=== PATIENT | female | born 1940 | race Caucasian/White ===

== ENCOUNTER 2022-01-09 12:35 | Inpatient (IN) | payer MEDICARE, OTHER ==
[~2022-01-09] VITALS: Ht 154.9 cm; Wt 72.6 kg
[2022-01-09] MEDS ORDERED: ALBU18HF2 IH (13:05)
[2022-01-09] MEDS ORDERED: MELO-105 PO (13:05)
[2022-01-09] MEDS ORDERED: LIDO700A30 TP (13:05)
[2022-01-09] MEDS ORDERED: TACR30OI4 TP (13:05)
[2022-01-09] MEDS ORDERED: ATEN100T PO (13:05)
[2022-01-09] MEDS ORDERED: FAMC500T3 PO (13:05)
[2022-01-09] MEDS ORDERED: HYDR-4133 PO (13:05)
[2022-01-09] MEDS ORDERED: CRES10 (13:07)
[2022-01-09] MEDS ORDERED: LANS30CA55 PO (13:07)
[2022-01-09] MEDS ORDERED: LOSA1TAB37 PO (13:07)
[2022-01-09] MEDS ORDERED: ONDANSETRON HCL 4MG/2ML INJ IV STA (13:28)
[2022-01-09] MEDS ORDERED: MORPHINE SULFATE 4 MG/ML CPJ (NOT FOR IM USE) IV STA (13:28)
[2022-01-09] MEDS ORDERED: SODIUM CHLORIDE 0.9% 1,000 ML IV ONE (13:30)
[2022-01-09] MEDS ORDERED: ACYCLOVIR INJ 750 MG in DEXT 5% WATER 125 ML IV SCH (13:30)
[2022-01-09] MEDS ORDERED: ACYCLOVIR INJ 500 MG in DEXT 5% WATER 100 ML IV SCH (13:38)
[2022-01-09 14:11] LABS: BASOPHILS % 0.2 % (0.0-2.0); EOSINOPHILS % 0.1 % (0.0-5.0); HEMATOCRIT. 33.9 % (36.0-48.0); HEMOGLOBIN. 11.9 g/dL (12.0-16.0); LYMPHOCYTES % 16.4 % (20.0-50.0); MEAN CORPUSCULAR HEMOGLOBIN 25.8 pg (28.0-32.0); MEAN CORPUSCULAR VOLUME 73.6 fL (81.0-99.0); MEAN PLATELET VOLUME 7.4 fl (7.4-10.4); MONOCYTES % 12.8 % (2.0-8.0); NEUTROPHILS % 70.5 % (40.0-76.0); PLATELET 145 x1000/uL (130-400); RED CELL DISTRIBUTION WIDTH 13.4 % (11.6-14.6)
[2022-01-09 14:22] LABS: CHLORIDE 71 mEq/L (98-107)
[2022-01-09] MEDS ORDERED: POTASSIUM CHLORIDE INJ 40 MEQ in DEXT 5% WATER 250 ML IV ONE (15:00)
[2022-01-09] MEDS: KCL 20MEQ/100ML PREMIX 100 ML IV SCH ×2 (16:15→17:00)
[2022-01-09 18:23] LABS: CHLORIDE 72 mEq/L (98-107)
[2022-01-09] MEDS ORDERED: ALBUTEROL (0.083%) 2.5MG/3ML NEB HHN ONE (19:00)
[2022-01-09 19:30] LABS: CLARITY URINE CLEAR (CLEAR); COLOR URINE YELLOW (YELLOW); KETONES URINE NEGATIVE (NEGATIVE); LEUKOCYTE ESTERASE URINE NEGATIVE (NEGATIVE); NITRITE URINE NEGATIVE (NEGATIVE); OCCULT BLOOD URINE TRACE (NEGATIVE); PROTEIN URINE 1+ (NEGATIVE); SPECIFIC GRAVITY URINE 1.006 (1.005-1.030); UROBILINOGEN URINE 0.2 E.U./dL (0.2-1.0)
[2022-01-09] MEDS ORDERED: ONDANSETRON HCL 4MG/2ML INJ IV PRN (19:30)
[2022-01-09] MEDS ORDERED: IPRATROPIUM/ALBUTEROL 0.5-3(2.5)MG/3ML NEB HHN PRN (19:30)
[2022-01-09] MEDS ORDERED: LORAZEPAM 0.5MG TABLET PO PRN (19:30)
[2022-01-09] MEDS ORDERED: DOCUSATE SODIUM 100MG CAPSULE PO PRN (19:30)
[2022-01-09] MEDS ORDERED: ACETAMINOPHEN 325MG TABLET PO PRN ×2 (19:30)
[2022-01-09 19:35] LABS: CHLORIDE URINE RANDOM 58 mEq/L; SODIUM URINE RANDOM 59 mEq/L
[2022-01-09] MEDS ORDERED: NALOXONE HCL 0.4MG/ML VIAL IV PRN (19:45)
[2022-01-10] VITALS (33 sets, daily range): BP systolic 72–174; BP diastolic 28–98
[2022-01-10 01:14] LABS: CHLORIDE 76 mEq/L (98-107)
[2022-01-10] MEDS: ACYCLOVIR INJ 500 MG in DEXT 5% WATER 100 ML IV SCH ×4 (02:50→22:54)
[2022-01-10] MEDS ORDERED: DESMOPRESSIN ACETATE 4MCG/ML AMP IV NR (03:30)
[2022-01-10] MEDS ORDERED: DEXT 5% WATER 250 ML IV NR ×2 (03:30)
[2022-01-10 05:26] LABS: BASOPHILS % 0.5 % (0.0-2.0); EOSINOPHILS % 0.1 % (0.0-5.0); HEMATOCRIT. 34.5 % (36.0-48.0); LYMPHOCYTES % 21.7 % (20.0-50.0); MEAN CORPUSCULAR HEMOGLOBIN 25.6 pg (28.0-32.0); MEAN CORPUSCULAR VOLUME 73.8 fL (81.0-99.0); MEAN PLATELET VOLUME 7.1 fl (7.4-10.4); MONOCYTES % 8.6 % (2.0-8.0); NEUTROPHILS % 69.1 % (40.0-76.0); PLATELET 161 x1000/uL (130-400); RED BLOOD CELL COUNT 4.68 mill/uL (4.2-5.4); RED CELL DISTRIBUTION WIDTH 13.4 % (11.6-14.6)
[2022-01-10 05:49] LABS: CHLORIDE 78 mEq/L (98-107)
[2022-01-10] MEDS ORDERED: POTASSIUM CHLORIDE INJ 40 MEQ in DEXT 5% WATER 250 ML IV ONE (06:45)
[2022-01-10] MEDS: KCL 20MEQ/100ML PREMIX 100 ML IV SCH ×3 (07:56→12:35)
[2022-01-10 09:23] LABS: PHOSPHORUS 2.6 mg/dL (2.5-4.9)
[2022-01-10] MEDS: HYDROCODONE/ACETAMINOPHEN 5/325MG TABLET PO PRN ×2 (10:37→23:03)
[2022-01-10] MEDS ORDERED: SODIUM CHLORIDE 3% 250 ML IV ONE (12:00)
[2022-01-10] MEDS ORDERED: MAGNESIUM 2 G PREMIX 50 ML IV NR (12:00)
[2022-01-10] MEDS ORDERED: SODIUM CHLORIDE IV ONE (13:00)
[2022-01-10] MEDS ORDERED: WATER FOR INJECTION STERILE IV ONE (13:00)
[2022-01-10 13:27] LABS: CHLORIDE 76 mEq/L (98-107)
[2022-01-10] MEDS: SODIUM CHLORIDE 0.9% 1,000 ML IV SCH (17:39)
[2022-01-10] MEDS ORDERED: POTASSIUM CHLORIDE INJ 40 MEQ in DEXT 5% WATER 500 ML IV NR (18:00)
[2022-01-10] MEDS ORDERED: VANCOMYCIN 1500MG in DEXTROSE 5% WATER 250ML IV NR (18:30)
[2022-01-10 18:34] LABS: CHLORIDE 82 mEq/L (98-107)
[2022-01-11] VITALS (15 sets, daily range): BP systolic 116–176; BP diastolic 37–127
[2022-01-11] MEDS: CLONIDINE 0.1MG TABLET PO PRN (02:22)
[2022-01-11 02:24] LABS: CHLORIDE 85 mEq/L (98-107)
[2022-01-11] MEDS ORDERED: PROPOFOL 10MG/ML 100ML 100 ML IV PRN (03:00)
[2022-01-11] MEDS: ACYCLOVIR INJ 500 MG in DEXT 5% WATER 100 ML IV SCH ×3 (05:53→21:04)
[2022-01-11 06:25] LABS: CHLORIDE 84 mEq/L (98-107)
[2022-01-11 06:37] LABS: HDL CHOLESTEROL 40 mg/dL (40-59); LDL CHOLESTEROL 61 mg/dL (5-100)
[2022-01-11 06:48] LABS: HEPATITIS B SURFACE ANTIGEN NEGATIVE
[2022-01-11] MEDS: FAMOTIDINE 20MG/2ML VIAL IV SCH ×2 (14:59→20:35)
[2022-01-11 17:31] LABS: CHLORIDE 85 mEq/L (98-107)
[2022-01-11] MEDS: VANCOMYCIN 500MG PREMIX 100 ML IV SCH (17:45)
[2022-01-11] MEDS: SODIUM CHLORIDE 0.9% 1,000 ML IV SCH (17:45)
[2022-01-11] MEDS ORDERED: VANCOMYCIN 1GM PMX (XELLIA) 200 ML IV SCH (18:00)
[2022-01-12] VITALS: BP 142/93
[2022-01-12 04:00] VITALS: BP 172/84
[2022-01-12] MEDS: ACYCLOVIR INJ 500 MG in DEXT 5% WATER 100 ML IV SCH ×3 (05:22→21:03)
[2022-01-12] MEDS: CLONIDINE 0.1MG TABLET PO PRN (05:23)
[2022-01-12 07:04] LABS: CHLORIDE 88 mEq/L (98-107)
[2022-01-12 07:08] LABS: BASOPHILS % 0.5 % (0.0-2.0); EOSINOPHILS % 0.7 % (0.0-5.0); HEMATOCRIT. 35.3 % (36.0-48.0); HEMOGLOBIN. 12.1 g/dL (12.0-16.0); LYMPHOCYTES % 21.2 % (20.0-50.0); MEAN CORPUSCULAR HEMOGLOBIN 25.7 pg (28.0-32.0); MEAN CORPUSCULAR VOLUME 75.2 fL (81.0-99.0); MEAN PLATELET VOLUME 6.6 fl (7.4-10.4); MONOCYTES % 6.6 % (2.0-8.0); PLATELET 231 x1000/uL (130-400); RED CELL DISTRIBUTION WIDTH 13.7 % (11.6-14.6)
[2022-01-12 08:02] VITALS: BP 152/95
[2022-01-12] MEDS: FAMOTIDINE 20MG/2ML VIAL IV SCH ×2 (08:06→21:04)
[2022-01-12 11:40] VITALS: BP 153/85
[2022-01-12] MEDS: VANCOMYCIN 500MG PREMIX 100 ML IV SCH (11:46)
[2022-01-12 15:37] VITALS: BP 154/84
[2022-01-12] MEDS: SODIUM CHLORIDE 0.9% 1,000 ML IV SCH (16:37)
[2022-01-12 20:00] VITALS: BP 126/57
[2022-01-13] VITALS: BP 159/82
[2022-01-13 04:00] VITALS: BP 143/83
[2022-01-13] MEDS: ACYCLOVIR INJ 500 MG in DEXT 5% WATER 100 ML IV SCH ×3 (05:02→22:22)
[2022-01-13] MEDS: VANCOMYCIN 500MG PREMIX 100 ML IV SCH (06:13)
[2022-01-13 08:00] VITALS: BP 155/70
[2022-01-13] MEDS: FAMOTIDINE 20MG/2ML VIAL IV SCH (08:19)
[2022-01-13 11:21] LABS: BASOPHILS % 0.7 % (0.0-2.0); EOSINOPHILS % 0.7 % (0.0-5.0); HEMATOCRIT. 35.3 % (36.0-48.0); LYMPHOCYTES % 12.2 % (20.0-50.0); MEAN CORPUSCULAR HEMOGLOBIN 25.7 pg (28.0-32.0); MEAN CORPUSCULAR VOLUME 75.8 fL (81.0-99.0); MEAN PLATELET VOLUME 6.2 fl (7.4-10.4); MONOCYTES % 6.5 % (2.0-8.0); NEUTROPHILS % 79.9 % (40.0-76.0); PLATELET 280 x1000/uL (130-400); RED BLOOD CELL COUNT 4.66 mill/uL (4.2-5.4); RED CELL DISTRIBUTION WIDTH 13.8 % (11.6-14.6)
[2022-01-13 11:51] LABS: CHLORIDE 91 mEq/L (98-107)
[2022-01-13 12:00] VITALS: BP 158/89
[2022-01-13 16:00] VITALS: BP 150/89
[2022-01-13] MEDS: SODIUM CHLORIDE 0.9% 1,000 ML IV SCH (16:39)
[2022-01-13 20:00] VITALS: BP_SYST 156; BP_SYST 161; BP_DIAS 72; BP_DIAS 82
[2022-01-14] VITALS: BP 156/72
[2022-01-14] MEDS: VANCOMYCIN 500MG PREMIX 100 ML IV SCH (00:43)
[2022-01-14 04:00] VITALS: BP 128/71
[2022-01-14] MEDS: ACYCLOVIR INJ 500 MG in DEXT 5% WATER 100 ML IV SCH ×3 (05:21→21:39)
[2022-01-14 08:00] VITALS: BP 150/91
[2022-01-14] MEDS: FAMOTIDINE 20MG TABLET PO SCH (08:37)
[2022-01-14 10:11] LABS: BASOPHILS % 0.8 % (0.0-2.0); EOSINOPHILS % 1.8 % (0.0-5.0); HEMATOCRIT. 36.2 % (36.0-48.0); HEMOGLOBIN. 12.2 g/dL (12.0-16.0); LYMPHOCYTES % 17.7 % (20.0-50.0); MEAN CORPUSCULAR HEMOGLOBIN 25.7 pg (28.0-32.0); MEAN CORPUSCULAR VOLUME 76.5 fL (81.0-99.0); MEAN PLATELET VOLUME 6.2 fl (7.4-10.4); MONOCYTES % 5.1 % (2.0-8.0); NEUTROPHILS % 74.6 % (40.0-76.0); PLATELET 317 x1000/uL (130-400); RED BLOOD CELL COUNT 4.73 mill/uL (4.2-5.4)
[2022-01-14 11:10] LABS: CHLORIDE 91 mEq/L (98-107)
[2022-01-14 12:00] VITALS: BP 158/93
[2022-01-14 15:56] VITALS: BP 146/94
[2022-01-14] MEDS: VANCOMYCIN 1G PREMIX 200 ML IV SCH (17:18)
[2022-01-14] MEDS: SODIUM CHLORIDE 0.9% 1,000 ML IV SCH (17:18)
[2022-01-14 20:00] VITALS: BP 148/97
[2022-01-15] VITALS (7 sets, daily range): BP systolic 130–160; BP diastolic 68–99
[2022-01-15] MEDS: ACYCLOVIR INJ 500 MG in DEXT 5% WATER 100 ML IV SCH ×3 (05:13→22:32)
[2022-01-15 08:16] LABS: BASOPHILS % 1.2 % (0.0-2.0); EOSINOPHILS % 2.3 % (0.0-5.0); HEMATOCRIT. 33.6 % (36.0-48.0); HEMOGLOBIN. 11.5 g/dL (12.0-16.0); LYMPHOCYTES % 22.1 % (20.0-50.0); MEAN CORPUSCULAR HEMOGLOBIN 25.9 pg (28.0-32.0); MEAN CORPUSCULAR VOLUME 75.4 fL (81.0-99.0); MONOCYTES % 8.8 % (2.0-8.0); NEUTROPHILS % 65.6 % (40.0-76.0); PLATELET 327 x1000/uL (130-400); RED BLOOD CELL COUNT 4.46 mill/uL (4.2-5.4); RED CELL DISTRIBUTION WIDTH 13.9 % (11.6-14.6)
[2022-01-15 08:19] LABS: CHLORIDE 92 mEq/L (98-107)
[2022-01-15] MEDS: VANCOMYCIN 1G PREMIX 200 ML IV SCH ×2 (09:12→21:49)
[2022-01-15] MEDS: FAMOTIDINE 20MG TABLET PO SCH (09:12)
[2022-01-15] MEDS: SODIUM CHLORIDE 0.9% 1,000 ML IV SCH (17:30)
[2022-01-16] VITALS: BP 160/94
[2022-01-16] MEDS: ACYCLOVIR INJ 500 MG in DEXT 5% WATER 100 ML IV SCH ×2 (05:43→13:59)
[2022-01-16 07:03] LABS: BASOPHILS % 0.7 % (0.0-2.0); EOSINOPHILS % 2.1 % (0.0-5.0); HEMATOCRIT. 32.5 % (36.0-48.0); LYMPHOCYTES % 20.4 % (20.0-50.0); MEAN CORPUSCULAR HEMOGLOBIN 25.8 pg (28.0-32.0); MEAN CORPUSCULAR VOLUME 75.8 fL (81.0-99.0); MEAN PLATELET VOLUME 6.1 fl (7.4-10.4); NEUTROPHILS % 66.8 % (40.0-76.0); PLATELET 328 x1000/uL (130-400); RED BLOOD CELL COUNT 4.28 mill/uL (4.2-5.4); RED CELL DISTRIBUTION WIDTH 14.1 % (11.6-14.6)
[2022-01-16 07:47] LABS: CHLORIDE 93 mEq/L (98-107)
[2022-01-16 08:00] VITALS: BP 156/90
[2022-01-16] MEDS: VANCOMYCIN 1G PREMIX 200 ML IV SCH (09:59)
[2022-01-16] MEDS: FAMOTIDINE 20MG TABLET PO SCH (09:59)
[2022-01-16] MEDS ORDERED: VALA100044 MT (11:41)
[2022-01-16] MEDS: CLONIDINE 0.1MG TABLET PO PRN (13:59)
[2022-01-16 15:03] VITALS: BP 149/87
== END 2022-01-16 16:05 | disposition home health service (06) | DRG 723 ==
LOC: ER 13:05 → CVICU 18:19 → ENRESERV 19:15 → MICUSO 22:12 → 7WST 01-11 11:05
PROVIDERS: ADMIT Internal Medicine; ATTEND Internal Medicine
DX: B02.7 Disseminated zoster (principal); B01.11 Varicella encephalitis and encephalomyelitis; G93.41 Metabolic encephalopathy; E22.2 Syndrome of inappropriate secretion of antidiuretic hormone; I42.0 Dilated cardiomyopathy; I11.9 Hypertensive heart disease without heart failure; K52.9 Noninfective gastroenteritis and colitis, unspecified; K80.20 Calculus of gallbladder without cholecystitis without obstruction; E11.9 Type 2 diabetes mellitus without complications; E78.00 Pure hypercholesterolemia, unspecified; E87.6 Hypokalemia; E66.9 Obesity, unspecified; G47.33 Obstructive sleep apnea (adult) (pediatric); K76.89 Other specified diseases of liver; R32 Unspecified urinary incontinence; E83.42 Hypomagnesemia; Z20.822 Contact with and (suspected) exposure to COVID-19; K76.9 Liver disease, unspecified; E78.5 Hyperlipidemia, unspecified; T50.2X5A Adverse effect of carbonic-anhydrase inhibitors, benzothiadiazides and other diuretics, initial encounter; Y92.89 Other specified places as the place of occurrence of the external cause; Z68.30 Body mass index [BMI] 30.0-30.9, adult; Z79.899 Other long term (current) drug therapy
CPT/HCPCS: 36415; 71045; 76700; 80048; 80053; 80061; 80076; 80202; 81003; 82436; 82533; 82962; 83735; 83930; 83935; 84100; 84132; 84145; 84300; 84443; 85025; 86705; 86709; 86803; 87340; 87426; 99291; J0133; J2270; J2405; J2597; J3370; J3475; J3480; J3490; J7030; J7060; J7131

== ENCOUNTER → 2022-04-07 | Outpatient (CLI) | payer MEDICARE, OTHER ==
[~2022-04-07] MED LIST: ALBU18HF2 IH; ATEN100T PO; CRES10; HYDR-4133 PO; LANS30CA55 PO; LIDO700A30 TP; LOSA1TAB37 PO; MELO-105 PO; TACR30OI4 TP; VALA100044 MT
== END | disposition home or self-care (01) ==
LOC: NM 08:28
PROVIDERS: ATTEND Internal Medicine Critical Care Medicine
DX: K81.9 Cholecystitis, unspecified (principal)
CPT/HCPCS: 78227; A9537

== ENCOUNTER → 2023-05-19 | Outpatient (CLI) | payer MEDICARE, OTHER | END | disposition home or self-care (01) | LOC: RAD 14:01 | PROVIDERS: ATTEND Internal Medicine Critical Care Medicine | DX: M17.12 Unilateral primary osteoarthritis, left knee (principal); M25.462 Effusion, left knee | CPT/HCPCS: 73562 ==

== ENCOUNTER → 2023-06-14 | Outpatient (CLI) | payer MEDICARE, OTHER | END | disposition home or self-care (01) | LOC: CT 11:53 | PROVIDERS: ATTEND Internal Medicine Critical Care Medicine | DX: N28.1 Cyst of kidney, acquired (principal); K80.20 Calculus of gallbladder without cholecystitis without obstruction; K57.30 Diverticulosis of large intestine without perforation or abscess without bleeding; K44.9 Diaphragmatic hernia without obstruction or gangrene; K42.9 Umbilical hernia without obstruction or gangrene; I51.7 Cardiomegaly | CPT/HCPCS: 74176 ==

== ENCOUNTER → 2024-08-30 | Outpatient (CLI) | payer MEDICARE, OTHER ==
[~2024-08-30] MED LIST changes: +BARIUM SULFATE 450ML ORAL SUSP ONE; +HYDR-2988 PO; -HYDR-4133 PO
== END | disposition home or self-care (01) ==
LOC: CT 07:10
PROVIDERS: ATTEND Internal Medicine Critical Care Medicine
DX: K42.9 Umbilical hernia without obstruction or gangrene (principal); K80.20 Calculus of gallbladder without cholecystitis without obstruction; I51.7 Cardiomegaly; R10.9 Unspecified abdominal pain
CPT/HCPCS: 74176

== ENCOUNTER → 2025-02-20 | Outpatient (CLI) | payer MEDICARE, MEDICAID ==
[~2025-02-20] MED LIST changes: -BARIUM SULFATE 450ML ORAL SUSP ONE
== END | disposition home or self-care (01) ==
LOC: RAD 13:31
DX: S53.19 Other subluxation and dislocation of ulnohumeral joint (principal); M75.31 Calcific tendinitis of right shoulder; M17.12 Unilateral primary osteoarthritis, left knee; M25.862 Other specified joint disorders, left knee; M85.89 Other specified disorders of bone density and structure, multiple sites; M25.551 Pain in right hip; M25.552 Pain in left hip; M25.561 Pain in right knee; M25.562 Pain in left knee; M25.512 Pain in left shoulder; M25.511 Pain in right shoulder; Z96.651 Presence of right artificial knee joint; X58.XXXA Exposure to other specified factors, initial encounter; Y93.89 Activity, other specified; Y92.89 Other specified places as the place of occurrence of the external cause; Y99.8 Other external cause status
CPT/HCPCS: 73030; 73521; 73562

== ENCOUNTER → 2025-04-23 | Outpatient (CLI) | payer MEDICARE, MEDICAID ==
[~2025-04-23] MED LIST changes: +BARIUM SULFATE 450ML ORAL SUSP ONE
== END | disposition home or self-care (01) ==
LOC: CT 06:38
PROVIDERS: ATTEND Internal Medicine Critical Care Medicine
DX: K57.30 Diverticulosis of large intestine without perforation or abscess without bleeding (principal); N28.1 Cyst of kidney, acquired; K80.20 Calculus of gallbladder without cholecystitis without obstruction; K44.9 Diaphragmatic hernia without obstruction or gangrene; K42.9 Umbilical hernia without obstruction or gangrene; K76.89 Other specified diseases of liver; R10.13 Epigastric pain; J98.11 Atelectasis; I70.90 Unspecified atherosclerosis; M47.816 Spondylosis without myelopathy or radiculopathy, lumbar region; M43.16 Spondylolisthesis, lumbar region
CPT/HCPCS: 74176

== ENCOUNTER → 2025-07-12 | Outpatient (CLI) | payer MEDICARE, MEDICAID ==
[~2025-07-12] MED LIST changes: -BARIUM SULFATE 450ML ORAL SUSP ONE
== END | disposition home or self-care (01) ==
LOC: RAD 10:50
PROVIDERS: ATTEND Internal Medicine Critical Care Medicine
DX: Z01.818 Encounter for other preprocedural examination (principal); J98.4 Other disorders of lung; I51.7 Cardiomegaly; M85.88 Other specified disorders of bone density and structure, other site; M47.814 Spondylosis without myelopathy or radiculopathy, thoracic region; M40.204 Unspecified kyphosis, thoracic region
CPT/HCPCS: 71046